=== PATIENT | male | born 1940 | race Caucasian/White ===

== ENCOUNTER 2022-02-10 19:08 | Emergency (ER) | payer MEDICARE, OTHER ==
[~2022-02-10 19:08] MED LIST: ALLERGY RELIEF10 M1 PO; AMLODIPINE BESYL5 MG PO; ASMANEX HFA13 G1 INH; ELIQUIS5 MG PO; FOLIC ACID1 MG PO; GABAPENTIN800 MG PO; HCTZ25 MG PO; K-TAB ER10 MEQ PO; LASIX20 MG PO; LIPITOR40 MG PO; METOPROLOL SUC100 MG PO; SPIRIVA 18MCG18 MCG INH; VENTOLIN HFA IN18 GM INH
[2022-02-10 19:41] LABS: BASOPHIL 0.5 % (0-2); EOSINOPHIL 3.2 % (0-7); HCT 46.2 % (42.0-52.0); HGB 15.4 g/dl (13.2-18.0); LYMPHOCYTE 19.1 % (15-48); MCH 33.2 pg (25.0-31.0); MCHC 33.3 g/dL (32.0-36.0); MCV 99.6 fL (78.0-100.0); MONOCYTE 7.1 % (0-12); NEUTROPHIL 69.7 % (41-80); NRBC 0; PLT 217 K/uL (150-400); RBC 4.64 M/uL (4.70-6.00); WBC 7.6 K/uL (4.0-10.5)
[2022-02-10 20:06] LABS: ALBUMIN 3.7 g/dL (3.4-5.0); BILIRUBIN - TOTAL 0.7 mg/dL (0.2-1.0); BUN/CREAT RATIO (CALC) 20.9 RATIO; CREATININE 1.48 mg/dL (0.67-1.17); GLOBULIN (CALCULATION) 2.7 g/dL; TOTAL PROTEIN 6.4 g/dL (6.4-8.2)
[2022-02-10 20:07] LABS: INR 1.24 (0.9-1.2); PROTHROMBIN TIME 15.2 SECONDS (11.9-13.9); PTT 29.2 SECONDS (24.9-34.6)
[2022-02-10 22:01] LABS: CORONAVIRUS 2019 SARS-COV-2 NEGATIVE (NEGATIVE); INFLUENZA A NAA NEGATIVE (NEGATIVE)
[2022-02-10] MEDS ORDERED: KEFLEX250 MG PO (23:52)
== END 2022-02-10 23:52 | disposition home or self-care (01) ==
LOC: FER 19:08
PROVIDERS: Emergency Medicine
DX: E86.0 Dehydration (principal); N39.0 Urinary tract infection, site not specified; R55 Syncope and collapse; I10 Essential (primary) hypertension; J44.9 Chronic obstructive pulmonary disease, unspecified; Z20.822 Contact with and (suspected) exposure to COVID-19; Z87.891 Personal history of nicotine dependence
CPT/HCPCS: 36415; 70450; 71045; 73522; 80053; 80061; 84484; 85025; 85610; 85730; 93005; J7030; Q0162; U0002